=== PATIENT | female | born 1995 | race Caucasian/White ===

== ENCOUNTER 2018-10-06 20:38 | Emergency (ER) | payer OTHER ==
--- NOTE | 2018-10-06 21:39 | RADIOLOGY REPORT (SQ) ---
EXAM DESCRIPTION: XR FOOT 3 OR MORE VIEWS COMPLETED DATE/TME: 10/06/2018 00:00 CLINICAL HISTORY: 23 years, Female, bone tenderness COMPARISON: None. NUMBER OF VIEWS: Three TECHNIQUE: Three views of the RIGHT foot were obtained in AP, lateral and oblique projection. LIMITATIONS: None. FINDINGS: No fracture or dislocation. The joint spaces are preserved. Soft tissues are within normal limits. IMPRESSION: No acute radiographic abnormality. copyright 2010 [employer]- All Rights Reserved
[2018-10-06] MEDS ORDERED: ACETAMINOPHEN 325 MG TABLET PO ONE (23:28)
--- NOTE | 2018-10-06 23:43 | ER Document Report ---
HPI - HPI Patient complains to provider of: R foot injury Time Seen by Provider: 10/06/18 23:05 Pain Level: 5 Context: 23-year-old female presents the emergency department for right foot injury after she dropped a keg of beer on her right great toe and second toe while at work today. 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 She states she was unable to bear weight on it and pain is significant over the right MTP and just proximal to the second toe. Patient is able to wiggle her toes, and there is some mild ecchymosis seen. - REPRODUCTIVE Reproductive: DENIES: : - DERM Skin Color: Normal, [place] Past Medical History - Social History Smoking Status: Current Some Day Smoker Chew tobacco use (# tins/day): No Frequency of alcohol use: Occasional Drug Abuse: None Family History: None Patient has suicidal ideation: No Patient has homicidal ideation: No Pulmonary Medical History: Reports: Hx Asthma Renal/ Medical History: Denies: Hx Peritoneal Dialysis Vertical Provider Document - CONSTITUTIONAL Notes: PHYSICAL EXAMINATION: Reviewed vital signs and charting by RN GENERAL: Alert, interacts well. No acute distress. HEAD: Normocephalic, atraumatic. EYES: Pupils equal and round. Extraocular movements intact. ENT: Oral mucosa moist, tongue midline. NECK: Full range of motion. Trachea midline. LUNGS: Clear to auscultation bilaterally, no wheezes, rales, or rhonchi. No respiratory distress. HEART: Regular rate and rhythm. No murmur ABDOMEN: soft, non-tender. No distention. Bowel sounds present EXTREMITIES: Moves all 4 extremities spontaneously. Acute tenderness to palpation over the right dorsal and lateral aspects of the MTP and the area just proximal to the second and third toes, there is some mild ecchymosis and minimal edema. Normal distal neurovascular exam, 2+ DP pulse, brisk cap refill. PSYCH: Normal affect, normal mood. SKIN: Warm, dry, normal turgor. No rashes or lesions noted. Course - Re-evaluation Re-evalutation: 10/06/18 23:57 Well-appearing, x-ray negative for fracture dislocation, soft tissue injury. Plan is to place patient in Timothy wrap and give her crutches with instructions to ice it and use Motrin and Tylenol as needed for pain and inflammation. She is stable for discharge. - Vital Signs Vital signs: Temp Pulse Resp BP Pulse Ox 98.0 F 73 18 114/69 98 10/06/18 20:42 10/06/18 20:42 10/06/18 20:42 10/06/18 20:42 10/06/18 20:42 Discharge - Discharge Clinical Impression: Right foot injury Qualifiers: Encounter type: initial encounter Qualified Code(s): S99.921A - Unspecified injury of right foot, initial encounter Condition: Good Disposition: HOME, SELF-CARE Additional Instructions: You were seen in the emergency department this evening for a right foot injury. There was no fracture or any bony abnormality on x-ray which is very reassuring. We have placed an Timothy wrap and I recommend that you stay off of it for the next couple of days. You can employ rice treatment: Rest, ice, compression, elevation. Also, take Motrin 600 mg with food or milk and/or Tylenol 1000 mg for pain as needed every 6 hours for both. If your pain gets acutely worse, you get severe swelling, you completely loose function of your foot, or you have any other concerning symptoms please return to the emergency department for reevaluation. Forms: Return to Work
[2018-10-06 23:58] VITALS: BP 116/84
== END 2018-10-06 23:54 | disposition home or self-care (01) ==
LOC: ER 20:38
DX: S90.31XA Contusion of right foot, initial encounter (principal); W20.8XXA Other cause of strike by thrown, projected or falling object, initial encounter; Y93.89 Activity, other specified; Y92.59 Other trade areas as the place of occurrence of the external cause; Y99.0 Civilian activity done for income or pay; F17.200 Nicotine dependence, unspecified, uncomplicated; J45.909 Unspecified asthma, uncomplicated
CPT/HCPCS: 99283

== ENCOUNTER 2019-03-01 20:04 | Emergency (ER) | payer MEDICAID, OTHER ==
--- NOTE | 2019-03-01 20:47 | ER Document Report ---
ED Medical Screen (RME) - General Chief Complaint: Shortness Of Breath Stated Complaint: AND HAVING DIFFICULTY BREATHING Time Seen by Provider: 03/01/19 20:39 Mode of Arrival: Wheelchair Information source: Patient Notes: 23-year-old female G2, P1 with history of asthma presents emergency department with complaints of difficulty breathing. She reports she used her inhaler at 1400 today. Denies fever vomiting diarrhea. Reports abdominal pain right upper quadrant epigastric area. Reports that started couple days ago when she lifted something heavy. O2 sats are 100%. Heart rate 74. Respiratory rate even unlabored. Clear no wheeze. Patient was instructed to focus on slowing her breathing down. She has never been hospitalized or intubated for asthma. Denies vaginal bleeding denies vaginal discharge. I have greeted and performed a rapid initial assessment of this patient. A comprehensive ED assessment and evaluation of the patient, analysis of test res ults and completion of the medical decision making process will be conducted by additional ED providers. TRAVEL OUTSIDE OF THE [place] IN LAST 30 DAYS: No - Related Data Allergies/Adverse Reactions: aspirin [From Excedrin Migraine] Allergy (Verified 10/06/18 21:58) caffeine [From Excedrin Migraine] Allergy (Verified 10/06/18 21:58) hydrocortisone Allergy (Verified 10/06/18 20:41) nickel Allergy (Verified 10/06/18 20:41) Home Medications: albuterol Past Medical History - Social History Chew tobacco use (# tins/day): No Frequency of alcohol use: None Drug Abuse: None Pulmonary Medical History: Reports: Hx Asthma Renal/ Medical History: Denies: Hx Peritoneal Dialysis
[2019-03-01 21:21] LABS: ABSOLUTE LYMPHOCYTES (AUTO) 2.7 10^3/uL (0.5-4.7); ABSOLUTE MONOCYTES (AUTO) 0.6 10^3/uL (0.1-1.4); ABSOLUTE NEUT (AUTO) 5.6 10^3/uL (1.7-8.2); BASOPHILS % (AUTO) 0.4 % (0-2); EOSINOPHILS % (AUTO) 0.2 % (0-6); HEMATOCRIT 41.7 % (36.0-47.0); HEMOGLOBIN 14.3 g/dL (12.0-15.5); LYMPHOCYTES % (AUTO) 29.8 % (13-45); MEAN CORPUSCULAR HEMOGLOBIN 31.8 pg (27.0-33.4); MEAN CORPUSCULAR HGB CONC 34.2 g/dL (32.0-36.0); MEAN CORPUSCULAR VOLUME 93 fl (80-97); MONOCYTES % (AUTO) 6.3 % (3-13); PLATELET COUNT 323 10^3/uL (150-450); RED BLOOD COUNT 4.48 10^6/uL (3.72-5.28); RED CELL DISTRIBUTION WIDTH 12.7 % (11.5-14.0); SEGMENTED NEUTROPHILS % (AUTO) 63.3 % (42-78); TOTAL CELLS COUNTED % (AUTO) 100 %; WHITE BLOOD COUNT 8.9 10^3/uL (4.0-10.5)
--- NOTE | 2019-03-01 23:03 | RADIOLOGY REPORT (SQ) ---
EXAM DESCRIPTION: US TRANSVAGINAL CLINICAL HISTORY: 23 years Female abd pain preg, LMP 01/15/2019 COMPARISON: None TECHNIQUE: Transvaginal OB ultrasound was performed. FINDINGS: The uterus measures 9.9 x 3.9 x 7.2 cm. The cervix measures 2.3 cm in length. Neither ovary is visualized. No free fluid collections are seen. There is an intrauterine gestational sac containing a yolk sac and pole. A heart rate is detected at 121 bpm. The yolk sac measures 0.23 cm in diameter. The pole crown-rump length measurement gives an EGA of six weeks two days. The clinical age is six weeks three days. IMPRESSION: Single viable intrauterine with an EGA by ultrasound of 6 weeks 2 days. heart tones measure 121 bpm.
--- NOTE | 2019-03-01 23:06 | RADIOLOGY REPORT (SQ) ---
EXAM DESCRIPTION: US ABDOMEN LIMITED CLINICAL HISTORY: 23 years, Female, ruq abd pain COMPARISON: None. FINDINGS: Transabdominal sonographic images through the right upper quadrant were performed with grayscale, color and Doppler evaluation. The liver is normal in appearance and measures 14.2 cm in length. Imaged hepatic and portal veins are patent with normal directional flow. No intrahepatic or extrahepatic biliary ductal dilatation. 3.3-mm common hepatic duct. No gallstone, gallbladder wall thickening or pericholecystic fluid. Unremarkable pancreas. The pancreatic tail is obscured by overlying bowel gas. The right kidney is unremarkable measuring 10.2 cm in length. No right-sided hydronephrosis or shadowing calculi are seen. No free fluid in Morison's pouch. IMPRESSION: No cholelithiasis, evidence of acute cholecystitis, or evidence of biliary obstruction.
--- NOTE | 2019-03-02 00:40 | ER Document Report ---
ED General - General Chief Complaint: Shortness Of Breath Stated Complaint: AND HAVING DIFFICULTY BREATHING Time Seen by Provider: 03/01/19 20:39 Mode of Arrival: Wheelchair Notes: Patient is a 23-year-old female, G2, P1 at about 6 weeks gestation that comes emergency department for chief complaint of abdominal pain in both her upper and lower abdomen and sensation of shortness of breath. She states this happened at work after she was lifting a heavy object in the freezer, she states like she felt like she suddenly "cramped up" and as result could not catch her breath. She states she tried her inhaler but this did not help. She states she has a history of asthma and is almost out of her inhaler as well. She states that the cramping and difficulty breathing stopped after arrival to the emergency d epartment. She has no current complaints. She denies vaginal bleeding or discharge, dysuria, fever/chills, nausea/vomiting. She states she is eating poorly because of nausea in first trimester. She takes no daily medications except vitamins. She denies any other medical history. TRAVEL OUTSIDE OF THE [place] IN LAST 30 DAYS: No - Related Data Allergies/Adverse Reactions: aspirin [From Excedrin Migraine] Allergy (Verified 10/06/18 21:58) caffeine [From Excedrin Migraine] Allergy (Verified 10/06/18 21:58) hydrocortisone Allergy (Verified 10/06/18 20:41) nickel Allergy (Verified 10/06/18 20:41) Home Medications: albuterol Past Medical History - General Information source: Patient - Social History Smoking Status: Former Smoker Chew tobacco use (# tins/day): No Frequency of alcohol use: None Drug Abuse: None Lives with: Family Family History: None Patient has suicidal ideation: No Patient has homicidal ideation: No Pulmonary Medical History: Reports: Hx Asthma Renal/ Medical History: Denies: Hx Peritoneal Dialysis - Immunizations Immunizations up to date: Yes Hx Diphtheria, Pertussis, Tetanus Vaccination: Yes Review of Systems - Review of Systems Constitutional: No symptoms reported EENT: No symptoms reported Cardiovascular: No symptoms reported Respiratory: See HPI Gastrointestinal: See HPI Genitourinary: No symptoms reported Female Genitourinary: See HPI Musculoskeletal: No symptoms reported Skin: No symptoms reported Hematologic/Lymphatic: No symptoms reported Neurological/Psychological: No symptoms reported Physical Exam - Vital signs Vitals: Temp Pulse Resp BP Pulse Ox 97.8 F 70 19 122/61 100 03/01/19 20:37 03/01/19 20:37 03/01/19 20:37 03/01/19 20:37 03/01/19 20:37 - Notes Notes: GENERAL: Alert, interacts well. No acute distress. HEAD: Normocephalic, atraumatic. EYES: Pupils equal, round, and reactive to light. Extraocular movements intact. ENT: Oral mucosa moist, tongue midline. Oropharynx unremarkable. Airway patent. NECK: Full range of motion. Supple. Trachea midline. LUNGS: Clear to auscultation bilaterally, no wheezes, rales, or rhonchi. No respiratory distress. HEART: Regular rate and rhythm. No murmur ABDOMEN: Soft, non-tender. Non-distended. Bowel sounds present in all 4 quadrants. GENITOURINARY: Deferred EXTREMITIES: Moves all 4 extremities spontaneously. No edema, normal radial and dorsalis pedis pulses bilaterally. No cyanosis. BACK: no cervical, thoracic, lumbar midline tenderness. No saddle anesthesia, normal distal neurovascular exam. Moves all extremities in full range of motion. NEUROLOGICAL: Alert and oriented x3. Normal speech. Cranial nerves II through XII grossly intact. PSYCH: Normal affect, normal mood. SKIN: Warm, dry, normal turgor. No rashes or lesions noted. Course - Re-evaluation Re-evalutation: Patient with clear lungs, no hypoxia, no tachycardia, no lower extremity swelling, and no current symptoms. Pain in the abdomen appeared to be associated with her shortness of breath, patient states that she started cramping and then felt shortness of breath, albuterol did not help, I have a low suspicion of any respiratory abnormality. Patient states full agreement this when I discussed it but she is asking for an inhaler refill regardless and this was provided along with a spacer. Review of the ultrasound of the upper abdomen is unremarkable, ultrasound of the uterus shows intrauterine with no complication noted. hCG appropriate. No bleeding or subchorionic hemorrhage. Urinalysis shows leukocyte Estrace, white blood cells, contamination. Offered to treat potential urinary tract infection but patient states she would prefer not to take antibiotics and as result urine culture was placed. Patient is requesting something for nausea for home and discharge. She was provided with a copy of her ultrasound, discussed follow-up, discussed recommendations, discussed return precautions. Patient states appreciation and agreement. Stable and asymptomatic at time of discharge. - Vital Signs Vital signs: Temp Pulse Resp BP Pulse Ox 98.2 F 64 16 114/59 L 100 03/02/19 02:32 03/02/19 02:32 03/02/19 02:32 03/02/19 02:32 03/02/19 02:32 - Laboratory Result Diagrams: 03/01/19 21:00 03/01/19 21:00 Laboratory results interpreted by me: 03/01/19 03/01/19 20:55 21:00 Beta HCG, Quant 97551.00 H Ur Leukocyte Esterase LARGE H Discharge - Discharge Clinical Impression: Shortness of breath, Abdominal cramping affecting Abdominal pain Qualifiers: Abdominal location: generalized Qualified Code(s): R10.84 - Generalized abdominal pain Condition: Stable Disposition: HOME, SELF-CARE Additional Instructions: Your evaluation shows a normal developing at this time measuring at 6 weeks and 2 days in the uterus. Your remaining work-up and evaluation are reassuring. I recommend that you use the albuterol inhaler with the spacer as needed for wheezing/shortness of breath. Take Tylenol for pain. Improve your eating and hydration to reduce the likelihood of your symptoms coming back, take the nausea medication if needed as prescribed. Follow-up with [facility] for additional evaluation and management. Return to the emergency department for any concerning symptoms including passing out, return to difficulty breathing, severe abdominal pain, uncontrolled vomiting, fever, or any other concerning symptoms. Prescriptions: Albuterol Sulfate [Proair HFA Inhalation Aerosol 8.5 gm MDI] 2 puff IH Q4H PRN #1 mdi PRN Reason: Metoclopramide HCl [Reglan] 5 mg PO ASDIR PRN #30 tablet PRN Reason: Forms: Special Work Note, Return to Work
[2019-03-02 00:53] LABS: ALBUMIN 4.4 g/dL (3.5-5.0); ALKALINE PHOSPHATASE 80 U/L (38-126); ANION GAP 13 (5-19); ASPARTATE AMINO TRANSFERASE 26 U/L (14-36); BILIRUBIN,DIRECT 0.3 mg/dL (0.0-0.4); BILIRUBIN,TOTAL 0.3 mg/dL (0.2-1.3); BLOOD UREA NITROGEN 12 mg/dL (7-20); CALCIUM 9.8 mg/dL (8.4-10.2); CARBON DIOXIDE 22 mmol/L (22-30); CHLORIDE 102 mmol/L (98-107); GLUCOSE 97 mg/dL (75-110); POTASSIUM 3.7 mmol/L (3.6-5.0)
[2019-03-02 01:49] LABS: APPEARANCE,URINE CLOUDY; BILIRUBIN,URINE NEGATIVE (NEGATIVE); COLOR,URINE YELLOW; GLUCOSE, URINE NEGATIVE (NEGATIVE); KETONES,URINE NEGATIVE (NEGATIVE); LEUKOCYTE ESTERASE,URINE LARGE (NEGATIVE); NITRITE,URINE NEGATIVE (NEGATIVE); PROTEIN,URINE NEGATIVE (NEGATIVE); URINE SPECIFIC GRAVITY 1.015; UROBILINOGEN,URINE NEGATIVE mg/dL (<2.0)
[2019-03-02 02:33] VITALS: BP 114/59
--- NOTE | 2019-03-02 09:35 | EKG REPORT ---
SEVERITY:- NORMAL ECG - SINUS RHYTHM : Confirmed by: Kymberly Odonnell 02-Mar-2019 09:34:17
== END 2019-03-02 02:32 | disposition home or self-care (01) ==
LOC: ER 20:04
DX: O26.891 Other specified pregnancy related conditions, first trimester (principal); R10.84 Generalized abdominal pain; R06.02 Shortness of breath; R10.10 Upper abdominal pain, unspecified; R10.30 Lower abdominal pain, unspecified; X50.0XXA Overexertion from strenuous movement or load, initial encounter; Z3A.01 Less than 8 weeks gestation of pregnancy; Z87.891 Personal history of nicotine dependence
CPT/HCPCS: 36415; 76705; 76817; 80053; 81001; 83690; 84702; 85025; 87086; 93005; 93010; 99285

== ENCOUNTER 2019-08-11 01:50 | Emergency (ER) | payer MEDICAID ==
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
[2019-08-11 04:30] LABS: APPEARANCE,URINE SLIGHTLY-CLOUDY; BILIRUBIN,URINE NEGATIVE (NEGATIVE); COLOR,URINE YELLOW; GLUCOSE, URINE NEGATIVE (NEGATIVE); KETONES,URINE NEGATIVE (NEGATIVE); LEUKOCYTE ESTERASE,URINE MODERATE (NEGATIVE); NITRITE,URINE NEGATIVE (NEGATIVE); PROTEIN,URINE NEGATIVE (NEGATIVE); UROBILINOGEN,URINE NEGATIVE mg/dL (<2.0)
[2019-08-11] MEDS ORDERED: CYCLOBENZAPRINE HCL 10 MG TABLET PO ONE (04:41)
[2019-08-11 05:12] VITALS: BP 118/68
== END 2019-08-11 05:00 | disposition home or self-care (01) ==
LOC: ER 01:50
DX: O9A.213 Injury, poisoning and certain other consequences of external causes complicating pregnancy, third trimester (principal); S39.92XA Unspecified injury of lower back, initial encounter; M54.5 Low back pain; W22.8XXA Striking against or struck by other objects, initial encounter; Y92.512 Supermarket, store or market as the place of occurrence of the external cause; Z3A.28 28 weeks gestation of pregnancy; O99.513 Diseases of the respiratory system complicating pregnancy, third trimester; J45.909 Unspecified asthma, uncomplicated
CPT/HCPCS: 99283; 36415; 87086; 81001; J3490

== ENCOUNTER 2019-08-18 13:17 | Emergency (ER) | payer MEDICAID ==
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
[2019-08-18 16:12] VITALS: BP 105/55
== END 2019-08-18 16:11 | disposition home or self-care (01) ==
LOC: ER 13:17
DX: O9A.213 Injury, poisoning and certain other consequences of external causes complicating pregnancy, third trimester (principal); S39.92XA Unspecified injury of lower back, initial encounter; Z3A.30 30 weeks gestation of pregnancy; M54.5 Low back pain; W22.8XXA Striking against or struck by other objects, initial encounter; Y92.512 Supermarket, store or market as the place of occurrence of the external cause
CPT/HCPCS: 99283

== ENCOUNTER 2019-08-23 15:16 | Emergency (ER) | payer MEDICAID ==
--- NOTE | 2019-08-23 19:45 | ER Document Report ---
ED General - General Chief Complaint: Sore Throat Stated Complaint: COUGH,HEADACHE,SORE THROAT Primary Care Provider: MEENA STOKES MD [Primary Care Provider] - Follow up as needed Mode of Arrival: Ambulatory Information source: Patient Notes: Patient is a 24-year-old female presenting to the emergency department with 3- day history of sore throat and cough. 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 Patient is also of note 31 weeks . Patient reports prior history of asthma but denies any wheezing at this time and reports no fever. Patient does not have any obvious known contacts but given the patient's employment she has highly suspect for passive infection. TRAVEL OUTSIDE OF THE [place] IN LAST 30 DAYS: No - HPI Onset: Last week Onset/Duration: Gradual Quality of pain: Achy, Burning Severity: Mild Pain Level: 1 Associated symptoms: Nonproductive cough, Sore throat. denies: Fever Exacerbated by: Denies Relieved by: Denies Similar symptoms previously: No Recently seen / treated by doctor: No - Related Data Allergies/Adverse Reactions: aspirin [From Excedrin Migraine] Allergy (Verified 10/06/18 21:58) caffeine [From Excedrin Migraine] Allergy (Verified 10/06/18 21:58) hydrocortisone Allergy (Verified 10/06/18 20:41) nickel Allergy (Verified 10/06/18 20:41) Past Medical History - General Information source: Patient - Social History Smoking Status: Never Smoker Chew tobacco use (# tins/day): No Frequency of alcohol use: None Drug Abuse: None Lives with: Family Family History: None Patient has suicidal ideation: No Patient has homicidal ideation: No Pulmonary Medical History: Reports: Hx Asthma Renal/ Medical History: Denies: Hx Peritoneal Dialysis Past Surgical History: Reports: Hx Orthopedic Surgery - Immunizations Immunizations up to date: Yes Hx Diphtheria, Pertussis, Tetanus Vaccination: Yes Review of Systems - Review of Systems Notes: REVIEW OF SYSTEMS: CONSTITUTIONAL : Denies fever, chills, or sweats. Denies recent illness. EENT: Per HPI CARDIOVASCULAR: Denies chest pain. RESPIRATORY: Denies cough, cold, or chest congestion. Denies shortness of breath, difficulty breathing, or wheezing. GASTROINTESTINAL: Denies abdominal pain. Denies nausea, vomiting, or diarrhea. Denies constipation. GENITOURINARY: Denies difficulty urinating, painful urination, burning, frequency, or blood in urine. MUSCULOSKELETAL: Denies neck or back pain or joint pain or swelling. SKIN: Denies rash or skin lesions. HEMATOLOGIC : Denies easy bruising or bleeding. NEUROLOGICAL: Denies altered mental status or loss of consciousness. Denies headache. Denies weakness or paralysis or loss of use of either side. Denies problems with gait or speech. Denies sensory or motor loss. PSYCHIATRIC: Denies suicidal or homicidal ideations 10 Systems are negative unless otherwise specified above Physical Exam - Vital signs Vitals: Temp Pulse Resp BP Pulse Ox 98.5 F 103 H 18 110/69 100 08/23/19 16:36 08/23/19 16:36 08/23/19 16:36 08/23/19 16:36 08/23/19 16:36 - Notes Notes: PHYSICAL EXAMINATION: GENERAL: Well-appearing, well-nourished and in no acute distress. HEAD: Atraumatic, normocephalic. EYES: Pupils equal round and reactive to light, extraocular movements intact, sclera anicteric, conjunctiva are normal. ENT: nares patent, oropharynx clear without exudates. Moist mucous membranes. Minimal erythema to the posterior pharynx no uvular swelling no tonsillar swelling or exudates. NECK: Normal range of motion, supple without lymphadenopathy, no appreciable JVD LUNGS: Lungs clear to auscultation bilaterally and equal. No wheezes rales or rhonchi. HEART: Regular rate and rhythm without murmurs ABDOMEN: Soft, nontender, obvious gravid uterus, normal bowel sounds. No guarding, no rebound. No masses appreciated. EXTREMITIES: Active full range of motion, no pitting or edema. No cyanosis. 2+ pulses x4 NEUROLOGICAL: No focal neurological deficits. Moves all extremities spontaneously and on command. SKIN: Warm, Dry, and intact. Normal turgor, no rashes or lesions noted. Course - Re-evaluation Re-evalutation: 08/23/19 19:43 Rapid strep test is negative patient is remained comfortable and asymptomatic while in the emergency department. I have a COVID test for the patient as an outpatient because of high risk susceptibility and also her status. Patient is agreeable with care plan will be discharged home with symptomatic care. - Vital Signs Vital signs: Temp Pulse Resp BP Pulse Ox 98.5 F 103 H 18 110/69 100 08/23/19 18:10 08/23/19 16:36 08/23/19 16:36 08/23/19 16:36 08/23/19 16:36 Discharge - Discharge Clinical Impression: Sore throat, Cough Condition: Stable Disposition: HOME, SELF-CARE Instructions: Sore Throat ([facility]) Referrals: MEENA STOKES MD [Primary Care Provider] - Follow up as needed
[2019-08-23 20:17] VITALS: BP 115/64
== END 2019-08-23 20:18 | disposition home or self-care (01) ==
LOC: ER 15:16
DX: J02.9 Acute pharyngitis, unspecified (principal); R51 Headache; Z20.828 Contact with and (suspected) exposure to other viral communicable diseases; Z88.6 Allergy status to analgesic agent
CPT/HCPCS: 99283; 87070; 87880; 87635; C9803

== ENCOUNTER 2019-08-27 00:05 | Outpatient (CLI) | payer MEDICAID ==
[2019-08-27 01:16] LABS: APPEARANCE,URINE CLEAR; BILIRUBIN,URINE NEGATIVE (NEGATIVE); COLOR,URINE COLORLESS; GLUCOSE, URINE NEGATIVE (NEGATIVE); KETONES,URINE NEGATIVE (NEGATIVE); LEUKOCYTE ESTERASE,URINE NEGATIVE (NEGATIVE); NITRITE,URINE NEGATIVE (NEGATIVE); PROTEIN,URINE NEGATIVE (NEGATIVE); URINE SPECIFIC GRAVITY 1.003; UROBILINOGEN,URINE NEGATIVE mg/dL (<2.0)
[2019-08-27 01:38] LABS: URINE AMPHETAMINES SCREEN NEGATIVE; URINE BARBITURATES SCREEN NEGATIVE; URINE BENZODIAZEPINES SCREEN NEGATIVE; URINE COCAINE SCREEN NEGATIVE; URINE MARIJUANA (THC) SCREEN NEGATIVE; URINE METHADONE SCREEN NEGATIVE; URINE PHENCYCLIDINE SCREEN NEGATIVE
[2019-08-27 02:06] LABS: BACTERIA (WET MOUNT) 3+ BACTERIA SEEN; RBCS (WET MOUNT) NO RBCS SEEN; T.VAGINALIS (WET MOUNT) NO TRICHOMONAS SEEN; WBCS (WET MOUNT) 3+ WBCS SEEN; YEAST (WET MOUNT) NO YEAST SEEN
--- NOTE | 2019-08-27 02:17 | RADIOLOGY REPORT (SQ) ---
EXAM: US , Limited EXAM DATE/TIME: 08/27/2019 1:28 AM CLINICAL HISTORY: The patient is 24 years old and is Female; cervix length, presentation,fluid TECHNIQUE: Real-time limited transabdominal ultrasound of the maternal uterus with image documentation. Transvaginal images of the cervix were also obtained. COMPARISON: OB ultrasound from 03/01/2019 FINDINGS: FETUS: Single intrauterine . POSITION: presentation is vertex. HEART RATE: heart rate is 152 bpm. PLACENTA: The placenta is posterior and fundal. The placenta appears unremarkable. No sonographic evidence of placental abruption. No placenta previa. AMNIOTIC FLUID: LISA is 6.9 cm. Largest pocket of amniotic fluid is 4.3 x 3.2 cm. CERVIX: The cervix is closed and measures 3.5 cm in length on transvaginal images. No funneling. IMPRESSION: Single live intrauterine in vertex presentation.
[2019-08-27] MEDS ORDERED: HYDROXYZINE PAMOATE 50 MG CAPSULE PO ONE (02:21)
[2019-08-27] MEDS ORDERED: HYDROXYZINE PAMOATE 50 MG CAPSULE ONE (02:41)
[2019-08-27] MEDS ORDERED: TERBUTALINE SULFATE INJ/PF 1 MG/1 ML SDV SUBCUT ONE (02:50)
[2019-08-27] MEDS ORDERED: TERBUTALINE SULFATE INJ/PF 1 MG/1 ML SDV ONE (03:20)
[2019-08-27 03:38] LABS: CHLAM PCR NOT DETECTED (NOT DETECT)
--- NOTE | 2019-08-27 06:27 | Non Stress Test Report ---
Non Stress Test Datetime Report Generated by CPN: 08/27/2019 06:27 DEMOGRAPHIC EGA NST: 32.0 INDICATION Indication for Study (NST) Other: > 32 weeks MONITORING Monitor Explained: Monitor Explained; Test Explained; Patient Verbalized Understanding Time on Monitor: 08/27/2019 04:00 Time off Monitor: 08/27/2019 04:26 NST Duration: 26 NST INTERVENTIONS NST Interventions: PO Hydration Physician Notified NST: Dr. Mathias BABY A: [id number] BABY A Movement : Present Contraction Frequency : Occasional FHR Baseline : 145 Accelerations : 15X15 Decelerations : None Variability : Moderate 6-25bpm NST Review: Meets Criteria for Reactive NST NST Review and Verified By : Alee Herbert RN Results: Reactive NST REPORT Report Trigger: Send Report
== END 2019-08-27 05:57 | disposition home or self-care (01) ==
LOC: LC 00:05
PROVIDERS: ATTEND Student in an Organized Health Care Education/Training Program
DX: O47.03 False labor before 37 completed weeks of gestation, third trimester (principal); Z3A.32 32 weeks gestation of pregnancy; Z87.891 Personal history of nicotine dependence; Z88.6 Allergy status to analgesic agent; Z88.8 Allergy status to other drugs, medicaments and biological substances; Z91.048 Other nonmedicinal substance allergy status
CPT/HCPCS: 59025; 94760; 87210; 81001; 87081; 80307; 87491; 87591; 76815; J3490; J3105

== ENCOUNTER 2019-10-11 09:14 | Inpatient (IN) | payer MEDICAID ==
[2019-10-11] MEDS ORDERED: RINGERS SOLUTION,LACTATED 1,000 ML IV ONE (09:25)
[2019-10-11] MEDS ORDERED: OXYTOCIN 10 UNIT/ML VIAL ONE (09:35)
[2019-10-11] MEDS ORDERED: MISOPROSTOL 0.2 MG TABLET ONE (09:35)
[2019-10-11] MEDS ORDERED: LIDOCAINE 1% INJ-PF (10 MG/ML) 30 ML SDV ONE (09:35)
[2019-10-11] MEDS ORDERED: OXYTOCIN/0.9 % SODIUM CHLORIDE 30 UNIT/500 ML RTUINJ ONE (09:35)
[2019-10-11 10:02] LABS: ABSOLUTE LYMPHOCYTES (AUTO) 1.3 10^3/uL (0.5-4.7); ABSOLUTE MONOCYTES (AUTO) 0.4 10^3/uL (0.1-1.4); ABSOLUTE NEUT (AUTO) 11.1 10^3/uL (1.7-8.2); BASOPHILS % (AUTO) 0.1 % (0-2); HEMATOCRIT 35.1 % (36.0-47.0); HEMOGLOBIN 11.9 g/dL (12.0-15.5); LYMPHOCYTES % (AUTO) 9.8 % (13-45); MEAN CORPUSCULAR HEMOGLOBIN 28.1 pg (27.0-33.4); MEAN CORPUSCULAR HGB CONC 33.8 g/dL (32.0-36.0); MEAN CORPUSCULAR VOLUME 83 fl (80-97); MONOCYTES % (AUTO) 3.2 % (3-13); PLATELET COUNT 291 10^3/uL (150-450); RED BLOOD COUNT 4.23 10^6/uL (3.72-5.28); RED CELL DISTRIBUTION WIDTH 13.6 % (11.5-14.0); SEGMENTED NEUTROPHILS % (AUTO) 86.9 % (42-78); TOTAL CELLS COUNTED % (AUTO) 100 %; WHITE BLOOD COUNT 12.8 10^3/uL (4.0-10.5)
[2019-10-11] MEDS ORDERED: MAGNESIUM HYDROXIDE SUSP 30 ML UDCUP PO PRN (10:31)
[2019-10-11] MEDS ORDERED: PROMETHAZINE HCL 25 MG SUPP.RECT PR PRN (10:31)
[2019-10-11] MEDS ORDERED: GLYCERIN/WITCH HAZEL LEAF 1 EACH MED..WIPE TP PRN (10:31)
[2019-10-11] MEDS ORDERED: OXYTOCIN/0.9 % SODIUM CHLORIDE 30 UNIT/500 ML RTUINJ IV PRN (10:31)
[2019-10-11] MEDS ORDERED: ACETAMINOPHEN 325 MG TABLET PO PRN (10:31)
[2019-10-11] MEDS ORDERED: PROMETHAZINE HCL 25 MG TABLET PO PRN (10:31)
[2019-10-11] MEDS ORDERED: MEASLES,MUMPS&RUBELLA VACC/PF 0.5 ML VIAL SUBCUT PRN (10:31)
[2019-10-11] MEDS ORDERED: BENZOCAINE/MENTHOL AEROSOL SPRAY 56 ML TOP PRN (10:31)
[2019-10-11] MEDS ORDERED: DIBUCAINE 1% OINTMENT 28 GM TP PRN (10:31)
[2019-10-11] MEDS ORDERED: DIPH/PERTUSS(ACELL)/TETANUS VAC/PF 0.5 ML SYR (>=10YO) IM PRN (10:31)
[2019-10-11] MEDS ORDERED: NA PHOS,M-B/NA PHOS,DI-BA (ADULT) 133 ML ENEMA PR PRN (10:31)
[2019-10-11] MEDS ORDERED: PROMETHAZINE HCL INJ 25 MG/1 ML VIAL IV PRN (10:31)
[2019-10-11] MEDS ORDERED: PSEUDOEPHEDRINE HCL 30 MG TABLET PO PRN (10:31)
[2019-10-11] MEDS ORDERED: DIPHENHYDRAMINE HCL 25 MG CAPSULE PO PRN (10:31)
--- NOTE | 2019-10-11 11:20 | Admission Physical ---
Datetime Report Generated by CPN: 10/11/2019 11:20 CURRENT ADMISSION Hx Assessment: The History has been Reviewed and is Current Chief Complaint: Uterine Contractions Indication for Induction: Not Applicable Admit Impression : Term, Intrauterine ; Active Labor Admit Plan: Admit to Unit; Initiate Labor Protocol ALLERGIES Medication Allergies: Yes Medication Allergies: caffeine (10/11/2019); aspirin (08/27/2019); hydrocortisone (08/27/2019); nickel (08/27/2019) Latex: No Latex Allergies OBSTETRICAL HISTORY EDC: 10/22/2019 00:00 : 2 Para: 1 Term: 1 : 0 SAB: 0 IAB: 0 Ectopic: 0 Livin Cesareans: 0 VBACs: 0 Multiple Births: 0 Gestational Diabetes: No Rh Sensitization: No Incompetent Cervix: No MEGAN: No Infertility: No ART Treatment: No Uterine Anomaly: No IUGR: No Hx Previous C/S: No Macrosomia: No Hx Loss/Stillborn: No PIH: No Hx : No Placenta Previa/Abruption: No Depression/PP Depression: Yes PTL/PROM: No Post Hemorrhage: No Current Procedures: Ultrasound Obstetrical History Comments: G1: 2017, , girl @ 38 weeks, 6# 7 oz G2: current SEE RECORDS Alcohol: No Marijuana : No Cocaine: No Other Illicit Drugs: No Cigarettes: Former Smoker. 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 Surgery: No Heart Disease: No Hosp/Surgery: Yes Autoimmune Disorder: No Anesthetic Complications: No Abnormal Pap Smear: Yes Neuro/Epilepsy: No Psychiatric Disorders: Yes Other Medical Diseases: No Hepatitis/Liver Disease: No Significant Family History: No Varicosities/Phlebitis: No Trauma/Violence : Yes Thyroid Dysfunction: No Medical History Comments: asthma, bunion surgery, ADHD, mood disorder, PTSD, childbirth INFECTIOUS HISTORY Gonorrhea: No Genital Herpes: No Chlamydia: No Tuberculosis: No Syphilis: No Hepatitis: No HIV/AIDS Exposure: No Rash or Viral Illness: No HPV: No Infectious History Comments: LGSIL PHYSICAL EXAM General: Normal Heart: Normal Lungs: Normal Back: Normal Abdomen: Normal Genitourinary Exam: Normal Extremities: Normal DTRs: Normal Pelvic Type: Adequate Vital Signs: Reviewed; Within Normal Limits VAGINAL EXAM Contraction Comments: q2 MEMBRANES Membranes: Ruptured FETUS A EGA: 38.3 Monitoring: External US FHR Category: Category I Presentation: Vertex Admit Comment: H_P completed after delivery Pt presented to unit via EMS and found to be 8cm with urge to push and SROMed upon arrival. Pt is 24yo G2 now P2 @38w3d into unit with contractions since 0200. Pt is O pos, RI, GBS negative with significant medical hx of asthma, ADHD, PTSD and mood disorder. Also with an LSIL pap at [facility]. uncomplicated otherwise, pt went on to deliver a viable baby boy. PLANS FOR LABOR AND DELIVERY Labor and Delivery: None Pain Management: Natural Feeding Preference: Formula Benefit of Breast Feed Discussed: Yes Circumcision: N/A INFORMED CONSENT Assignment: Fredrick Guillory MD Signature: with User ID: [email or web address] : with User ID: [email or web address]
--- NOTE | 2019-10-11 11:44 | Birth Certificate Data ---
Cert Data Datetime Report Generated by CPN: 10/11/2019 11:44 CERTIFICATE DATA 47a. Care: Yes (08/27/2019 00:17:Nieves Dougherty RN) 47b. Date of First Visit: 05/17/2019 00:00 (08/27/2019 00:17:Vicky Fernando RN) 47c. Date of Last Visit: 10/04/2019 00:00 (08/27/2019 00:17:Vicky Fernando RN) 47d. Number of Visits: 6 (08/27/2019 00:17:Vicky Fernando RN) 48a. Number of Prev Live Births: 1 (08/27/2019 00:17:Vicky Fernando RN) 48b. Now Livin (08/27/2019 00:17:Nieves Dougherty RN) 48c. Live Births Now : 0 (08/27/2019 00:17:QS system process) 48d. Date of Last Live : 01/13/2017 00:00 (08/27/2019 00:17:Vicky Fernando RN) 48e. Losses: 0 (08/27/2019 00:17:Vicky Fernando, RN) RISK FACTORS IN THIS 49a. Diabetes: No (08/27/2019 00:17:Nieves Ring RN) 49b. Hypertension: No (08/27/2019 00:17:Nieves Ring, RN) 49c. Previous Births: 0 (08/27/2019 00:17:Nieves Ring RN) 49d. Stillborns: No (08/27/2019 00:17:Nieves Ring, RN) 49d. IUGR: No (08/27/2019 00:17:Nieves Ring, RN) 49e. Infertility Treatment: No (08/27/2019 00:17:Nieves Ring RN) 49f. Previous Cesareans: 0 (08/27/2019 00:17:Nieves Ring, RN) Mother's Height 50b. Height Inches: 58 (10/11/2019 11:34:QS system process) Mother's Weight 51b. Weight at Time of Delivery: 136 (10/11/2019 11:34:QS system process) 52. Dt Last Normal Menses Began: 01/15/2019 00:00 (08/27/2019 00:17:Vicky Kassie, RN) Infections Present/Treated 53a. Gonorrhea: No (08/27/2019 00:17:Nieves Ring, RN) 53b. Syphilis: No (08/27/2019 00:17:Nieves Ring, RN) 53c. Chlamydia: No (08/27/2019 00:17:Nieves Ring, RN) 53d. Hepatitis B: No (08/27/2019 00:17:Nieves Ring, RN) Obstetric Procedures 54a, b, c. Obstetric Procedures: Ultrasound (08/27/2019 00:17:Nieves Dougherty RN) Cigarette Smoking 55a. 3 Months Before Preg - Ci (08/27/2019 00:17:Vicky Fernando RN) 55b. 1st Trimester of Preg- Ci (08/27/2019 00:17:Vicky Fernando RN) 55c. 2nd Trimester of Preg- Ci (08/27/2019 00:17:Vicky Fernando RN) 55d. 3rd Trimester of Preg- Ci (08/27/2019 00:17:Vicky Fernando RN) Onset of Labor 56a. PROM >12 Hrs: 0.48 (08/27/2019 00:17:QS system process) 56b. Precipitous Labor <3 Hrs: 8 (08/27/2019 00:17:QS system process) 56c. Prolonged Labor > 20 Hrs: 8 (08/27/2019 00:17:QS system process) 57a. Induction of Labor: N/A (08/27/2019 00:17:Vicky Fernando RN) 57c. Non-Vertex Presentation A: Vertex (08/27/2019 00:17:Vicky Fernando RN) 57d. Steroids - Lung Mat: None (08/27/2019 00:17:Vicky Fernando RN) 57d. Steroids - Lung Mat: Not Applicable (08/27/2019 00:17:Vicky Fernando RN) 57e. Antibiotics During Labor: n/a (08/27/2019 00:17:Vicky Fernando RN) 57g. Moderate/Heavy Meconium: Clear (10/11/2019 09:27:Vicky Fernando RN) 57h. Intolerance of Labor: N/A (08/27/2019 00:17:Vicky Fernando RN) : N/A (08/27/2019 00:17:Vicky Fernando RN) 57i. Epidural/Spinal Anesthesia: None (08/27/2019 00:17:Vicky Fernando RN) Method of Delivery 58a. Forceps - Unsuccessful A: N/A (08/27/2019 00:17:Vicky Fernando RN) 58b. Vacuum - Unsuccessful A: N/A (08/27/2019 00:17:Vicky Fernando RN) 58c. Presentation at 58c. Presentation at - A : Vertex (08/27/2019 00:17:Vicky Fernando RN) 58c. Presentation at - A : N/A (08/27/2019 00:17:Vicky Fernando RN) 58c. Presentation at - A : Cephalic (08/27/2019 00:17:Vicky Fernando RN) Final Route and Method of Del 58d. Baby A Route/Delivery: Vaginal (10/11/2019 09:56:Nai Frost RN) 58e. Trial of Labor Attempted: No (08/27/2019 00:17:Vicky Fernando RN) 58e. Trial of Labor Attempted A: N/A (08/27/2019 00:17:Vicky Fernando RN) 58e. Trial of Labor Attempted B: N/A (08/27/2019 00:17:Vicky Kassie, RN) Maternal Morbidity 59b. 3rd or 4th Degree Lacs: None (08/27/2019 00:17:Vicky Fernando, RN) 59b. 3rd or 4th Degree Lacs: right labial abrasion-hemostatic (08/27/2019 00:17:Dominique Marroquin, CNM) 61. GA at Delivery Baby A: 38.3 (08/27/2019 00:17:Vicky Fernando, RN) : Early Term- 37- 38.6 Weeks (08/27/2019 00:17:QS system process) 62a. 5 Minute Baby A: 9 (08/27/2019 00:17:QS system process)
--- NOTE | 2019-10-11 11:44 | Delivery Summary ---
Del Sum A-C Datetime Report Generated by CPN: 10/11/2019 11:44 DELIVERY PERSONNEL DELIVERY PERSONNEL: [id number] Delivery Doctor:: Dominique Marroquin CNM Labor and Delivery Nurse:: Vicky Fernando RNbetting agency manager Nurse:: ELIF Garcia Nursery Nurse:: CARISA Carroll Tech/UNIX ANALYST: Kandice Singh, ST MATERNAL INFORMATION Delivery Anesthesia: None Medications After Delivery: Pitocin 30 Units in 500ml NS/D5W Delivery QBL: 185 Delivery QBL Comment: 25ml but unable to obtain accurate count since patient moved up in the bed and out of collecting bag Maternal Complications: None Provider Comments: pt with uncontrollable urge to push at an anterior lip, pushed through a couple contractions progressed to c/c/0, continued pushing and quickly delivered a viable baby boy. Baby delivered with compound left arm, vigorous respiratory effort and cry spontaneously at . Baby placed on maternal abdomen, cord allowed to stop pulsating then clamped x2 and cut. Cord blood obtained (3vc noted), placenta delivered spontaneously intact, fundus firm at U-1, bleeding stable. Vaginal and perineal inspection revealed abrasion as stated and hemostatic. Mother and baby stable, continue skin to skin at this time LABOR SUMMARY EDC: 10/22/2019 00:00 No. Babies in Womb: 1 Attempted: No Labor Anesthesia: None LABOR INFORMATION Reason for Induction: Not Applicable Onset of Labor: 10/11/2019 02:00 Complete Dilatation: 10/11/2019 09:38 Oxytocin: N/A Group B Beta Strep: 1 NO GROUP B STREPTOCOCCUS RECOVERED Antibiotics # of Doses: 0 Antibiotics Time of Last Dose: n/a Name of Antibiotic Given: n/a Steroids Given: None Reason Steroids Not Administered: Not Applicable MEMBRANES Membranes Rupture Method: Spontaneous Rupture of Membranes: 10/11/2019 09:27 Length of Rupture (hr): 0.48 Amniotic Fluid Color: Clear Amniotic Fluid Amount: Moderate Amniotic Fluid Odor: None STAGES OF LABOR Stage 1 hr: 7 Stage 1 min: 38 Stage 2 hr: 0 Stage 2 min: 18 Stage 3 hr: 0 Stage 3 min: 5 Total Time in Labor hr: 8 Total Time in Labor min: 1 VAGINAL DELIVERY Episiotomy: None Laceration #1: None Laceration Extension #1: N/A Other Laceration: right labial abrasion-hemostatic Laceration Repair: Not Applicable Laceration Repair Note: n/a Sponge Count Correct: Yes Sharps Count Correct: Yes CSECTION DELIVERY Primary Indication: N/A Secondary Indication: N/A CSection Incidence: N/A Labor: N/A Elective: N/A CSection Incision: N/A BABY A INFORMATION Delivery Date/Time: 10/11/2019 09:56 Method of Delivery: Vaginal Nurse Controlled Delivery: No Born in Route : No : N/A Forceps: N/A Vacuum Extraction: N/A Shoulder Dystocia : No PRESENTATION/POSITION BABY A Presentation: Cephalic Cephalic Presentation: Vertex Vertex Position: Left Occipital Anterior Breech Presentation: N/A PLACENTA INFORMATION BABY A Placenta Delivery Time : 10/11/2019 10:01 Placenta Method of Delivery: Spontaneous Placenta Status: Delivered SCORES BABY A Heart Rate 1 min: >100 bpm Resp Effort 1 min: Good Cry Reflex Irritability 1 min: Cough or Sneeze or Pulls Away Muscle Tone 1 min: Active Motion Color 1 min: Blue/Pale Resuscitation Effort 1 min: Tactile Stimulation SCORE 1 MIN: 8 Heart Rate 5 min: >100 bpm Resp Effort 5 min: Good Cry Reflex Irritability 5 min: Cough or Sneeze or Pulls Away Muscle Tone 5 min: Active Motion Color 5 min: Body [place], Extremities Blue SCORE 5 MIN: 9 INFANT INFORMATION BABY A Gestational Age at Delivery: 38.3 Gestational Status: Early Term- 37- 38.6 Weeks Outcome : Liveborn Infant Condition : Stable Sex: Male IDENTIFICATION BABY A Verification Date/Time: 10/11/2019 10:12 ID Band Number: [id number] Mother's Name Verified: Yes Infant RN Verifying : Sendy Fernando, CARISA Additional Verifying Personnel: Tri Frost RN CORD INFORMATION BABY A No. Cord Vessels: 3 Nuchal Cord : N/A Cord Blood Taken: Yes-For Eval (Mom's Blood Type - or O+) Suction: None ASSESSMENT BABY A Infant Complications: None Physical Findings at Delivery: Within Normal Limits Respirations: Appears Normal Skin to Skin: Yes Automotive Upholsterer/ALS Called : No Care By: CARISA Roche Transferred To: Remains with Mother BABY B INFORMATION : N/A SIGNATURES Assignment: Fredrick Guillory MD Signature: with User ID: [email or web address] : with User ID: [email or web address]
[2019-10-11 11:46] LABS: URINE AMPHETAMINES SCREEN NEGATIVE; URINE BARBITURATES SCREEN NEGATIVE; URINE BENZODIAZEPINES SCREEN NEGATIVE; URINE COCAINE SCREEN NEGATIVE; URINE MARIJUANA (THC) SCREEN NEGATIVE; URINE METHADONE SCREEN NEGATIVE; URINE PHENCYCLIDINE SCREEN NEGATIVE
[2019-10-11] MEDS: IBUPROFEN 800 MG TABLET PO SCH ×3 (14:03→21:28)
[2019-10-11] MEDS: FERROUS SULFATE 325 MG TABLET PO SCH (17:48)
[2019-10-11] MEDS: DOCUSATE SODIUM 100 MG CAPSULE PO SCH (17:48)
[2019-10-11] MEDS: FAMOTIDINE 20 MG TABLET PO SCH (21:28)
[2019-10-12] MEDS: IBUPROFEN 800 MG TABLET PO SCH ×3 (05:09→21:26)
[2019-10-12 07:45] LABS: HEMATOCRIT 29.4 % (36.0-47.0); MEAN CORPUSCULAR HEMOGLOBIN 28.1 pg (27.0-33.4); MEAN CORPUSCULAR HGB CONC 33.3 g/dL (32.0-36.0); MEAN CORPUSCULAR VOLUME 84 fl (80-97); PLATELET COUNT 269 10^3/uL (150-450); RED BLOOD COUNT 3.49 10^6/uL (3.72-5.28); RED CELL DISTRIBUTION WIDTH 13.5 % (11.5-14.0); WHITE BLOOD COUNT 11.2 10^3/uL (4.0-10.5)
[2019-10-12 07:56] LABS: HEMOGLOBIN 9.8 g/dL (12.0-15.5)
--- NOTE | 2019-10-12 09:02 | PDOC PROGRESS REPORT ---
Subjective-OB Progress Note for:: 10/12/19 Physical Exam (OB) Vital Signs: Temp Pulse Resp BP Pulse Ox 97.9 F 71 16 113/60 100 10/12/19 07:37 10/12/19 07:37 10/12/19 07:37 10/12/19 07:37 10/12/19 07:37 Intake & Output 10/11/19 10/12/19 10/13/19 06:59 06:59 06:59 Weight 61.689 kg - PIH/Pre-Eclampsia DTR's: 2 + Clonus: Negative Headache: Absent Epigastric Pain: No Visual Changes: No - Maternal Morbidity 59. Maternal Morbidity (serious complications experinced by the mother associated with labor and delivery: None of the above - Lochia Lochia Amount: Scant < 10 ml Lochia Color: Rubra/Red - Abdomen Description: Soft, Round Hernia Present: No Bowel Sounds: Normoactive Flatus Presence: Present Stool: No Fundal Description: Firm, Midline Fundal Height: u/u - u/2 Objective-Diagnostic Laboratory: 10/12/19 07:20 10/11/19 10/11/19 10/12/19 09:42 09:42 07:20 WBC 12.8 H 11.2 H RBC 4.23 3.49 L Hgb 11.9 L 9.8 L D Hct 35.1 L 29.4 L MCV 83 84 MCH 28.1 28.1 MCHC 33.8 33.3 RDW 13.6 13.5 Plt Count 291 269 Seg Neutrophils % 86.9 H Blood Type O POSITIVE Antibody Screen NEGATIVE Assessment and Plan(PN) - Time Spent with Patient Time with patient: Less than 15 minutes - Disposition Anticipated Discharge Disposition: Home, Self Care Anticipated Discharge Timeframe: within 36 hours
[2019-10-12] MEDS: FAMOTIDINE 20 MG TABLET PO SCH ×2 (09:19→21:26)
[2019-10-12] MEDS: PRENATAL VITAMIN W DHA CAPSULE PO SCH (09:19)
[2019-10-12] MEDS: FERROUS SULFATE 325 MG TABLET PO SCH ×2 (09:19→18:27)
[2019-10-12] MEDS: DOCUSATE SODIUM 100 MG CAPSULE PO SCH ×2 (09:19→18:27)
[2019-10-12] MEDS: SENNOSIDES/DOCUSATE 8.6-50 MG 1 EACH TABLET PO SCH (09:19)
[2019-10-13] MEDS: IBUPROFEN 800 MG TABLET PO SCH (05:32)
[2019-10-13] MEDS: FERROUS SULFATE 325 MG TABLET PO SCH (09:12)
[2019-10-13] MEDS: DOCUSATE SODIUM 100 MG CAPSULE PO SCH (09:12)
[2019-10-13] MEDS: SENNOSIDES/DOCUSATE 8.6-50 MG 1 EACH TABLET PO SCH (09:12)
[2019-10-13] MEDS: PRENATAL VITAMIN W DHA CAPSULE PO SCH (09:13)
[2019-10-13] MEDS: FAMOTIDINE 20 MG TABLET PO SCH (09:13)
[2019-10-13 10:33] VITALS: BP 118/69
--- NOTE | 2019-10-13 11:03 | PDOC PROGRESS REPORT ---
Subjective-OB Progress Note for:: 10/13/19 Subjective: Doing well, ready to go home, scant lochia, bottle feeding Physical Exam (OB) Vital Signs: Temp Pulse Resp BP Pulse Ox 97.9 F 71 18 118/69 99 10/13/19 10:31 10/13/19 10:31 10/13/19 10:31 10/13/19 10:31 10/13/19 10:31 Intake & Output 10/12/19 10/13/19 10/14/19 06:59 06:59 06:59 Intake Total 880 380 Balance 880 380 Weight 61.689 kg - PIH/Pre-Eclampsia DTR's: 2 + Clonus: Negative Headache: Absent Epigastric Pain: No Visual Changes: No - Maternal Morbidity 59. Maternal Morbidity (serious complications experinced by the mother associated with labor and delivery: None of the above - Lochia Lochia Amount: Scant < 10 ml Lochia Color: Rubra/Red - Abdomen Description: Tender Hernia Present: No Fundal Description: Firm, Midline Fundal Height: u/3 - u/4 Objective-Diagnostic Laboratory: 10/12/19 07:20 Assessment and Plan(PN) - Assessment and Plan (1) Asthma Qualifiers: Asthma complication type: unspecified Is this a current diagnosis for this admission?: Yes (2) History of depression Is this a current diagnosis for this admission?: Yes (3) Delivery normal Is this a current diagnosis for this admission?: Yes (4) Labial abrasion, delivered, current hospitalization Is this a current diagnosis for this admission?: Yes (5) Term Is this a current diagnosis for this admission?: Yes - Time Spent with Patient Time with patient: Less than 15 minutes Medications reviewed and adjusted accordingly: Yes - Disposition Anticipated Discharge Disposition: Home, Self Care Anticipated Discharge Timeframe: within 24 hours
--- NOTE | 2019-10-13 11:06 | PDOC DISCHARGE SUMMARY ---
Impression - Admit/DC Date/PCP Admission Date/Primary Care Provider: 10/11/19 09:28 JACEY MOREIRA MD Discharge Date: 10/13/19 - Discharge Diagnosis (1) Asthma Is this a current diagnosis for this admission?: Yes (2) History of depression Is this a current diagnosis for this admission?: Yes (3) Delivery normal Is this a current diagnosis for this admission?: Yes (4) Labial abrasion, delivered, current hospitalization Is this a current diagnosis for this admission?: Yes (5) Term Is this a current diagnosis for this admission?: Yes - Additional Information Resuscitation Status: Full Code Discharge Diet: As Tolerated, Regular Discharge Activity: Activity As Tolerated, Pelvic Rest Referrals: JACEY MOREIRA MD [Primary Care Provider] - Home Medications: Albuterol Sulfate [Proair HFA Inhalation Aerosol 8.5 gm MDI] 2 puff IH Q4H PRN #1 mdi 03/02/19 Vits96/Iron Fum/Folic [ Tablet] 1 each PO DAILY 08/27/19 HPI Gestational Age: 38.3 Reason(s) for Admission: Onset of Labor Procedures: Ultrasound Intrapartum Procedure(s): Spontaneous Vaginal Delivery Hospital Course Hospital Course: routine 59. Maternal Morbidity (serious complications experinced by the mother associated with labor and delivery: None of the above Results Laboratory Results: WBC 11.2 10^3/uL (4.0-10.5) H 10/12/19 07:20 RBC 3.49 10^6/uL (3.72-5.28) L 10/12/19 07:20 Hgb 9.8 g/dL (12.0-15.5) L D 10/12/19 07:20 Hct 29.4 % (36.0-47.0) L 10/12/19 07:20 MCV 84 fl (80-97) 10/12/19 07:20 MCH 28.1 pg (27.0-33.4) 10/12/19 07:20 MCHC 33.3 g/dL (32.0-36.0) 10/12/19 07:20 RDW 13.5 % (11.5-14.0) 10/12/19 07:20 Plt Count 269 10^3/uL (150-450) 10/12/19 07:20 Lymph % (Auto) 9.8 % (13-45) L 10/11/19 09:42 [place] % (Auto) 3.2 % (3-13) 10/11/19 09:42 Eos % (Auto) 0.0 % (0-6) 10/11/19 09:42 Baso % (Auto) 0.1 % (0-2) 10/11/19 09:42 Absolute Neuts (auto) 11.1 10^3/uL (1.7-8.2) H 10/11/19 09:42 Absolute Lymphs (auto) 1.3 10^3/uL (0.5-4.7) 10/11/19 09:42 Absolute Monos (auto) 0.4 10^3/uL (0.1-1.4) 10/11/19 09:42 Absolute Eos (auto) 0.0 10^3/uL (0.0-0.6) 10/11/19 09:42 Absolute Basos (auto) 0.0 10^3/uL (0.0-0.2) 10/11/19 09:42 Seg Neutrophils % 86.9 % (42-78) H 10/11/19 09:42 Urine Opiates Screen NEGATIVE 10/11/19 11:15 Urine Methadone Screen NEGATIVE 10/11/19 11:15 Ur Barbiturates Screen NEGATIVE 10/11/19 11:15 Ur Phencyclidine Scrn NEGATIVE 10/11/19 11:15 Ur Amphetamines Screen NEGATIVE 10/11/19 11:15 U Benzodiazepines Scrn NEGATIVE 10/11/19 11:15 Urine Cocaine Screen NEGATIVE 10/11/19 11:15 U Marijuana (THC) Screen NEGATIVE 10/11/19 11:15 RPR NONREACTIVE (NONREACTIVE) 10/11/19 09:42 Blood Type O POSITIVE 10/11/19 09:42 Antibody Screen NEGATIVE 10/11/19 09:42 Plan Health Concerns: routine Plan of Treatment: discharge home, Goals: no complications Time Spent: Less than 30 Minutes
== END 2019-10-13 14:18 | disposition home or self-care (01) | DRG 807 ==
LOC: LC 09:14 → LR 09:28 → 2S 11:34
PROVIDERS: ADMIT Obstetrics & Gynecology; ATTEND Obstetrics & Gynecology
PROC: 10E0XZZ Delivery of Products of Conception, External Approach (ICD-10-PCS; principal; 2019-10-11)
DX: O99.334 Smoking (tobacco) complicating childbirth (principal); Z37.0 Single live birth; O70.0 First degree perineal laceration during delivery; O99.344 Other mental disorders complicating childbirth; F43.10 Post-traumatic stress disorder, unspecified; F90.9 Attention-deficit hyperactivity disorder, unspecified type; O99.52 Diseases of the respiratory system complicating childbirth; J45.909 Unspecified asthma, uncomplicated; Z3A.38 38 weeks gestation of pregnancy; Z88.6 Allergy status to analgesic agent; Z87.891 Personal history of nicotine dependence; Z79.51 Long term (current) use of inhaled steroids; O99.824 Streptococcus B carrier state complicating childbirth
CPT/HCPCS: 36415; 80307; 85025; 85027; 86592; 86850; 86900; 86901; J2590; J3490